=== PATIENT | male | born 1980 | race Caucasian/White ===

== ENCOUNTER 2016-08-22 11:57 | Emergency (ER) | payer MEDICAID, OTHER ==
[2016-08-22] MEDS ORDERED: DICYCLOMINE HCL 10 MG/ML AMPUL IM ONE ×2 (12:34→12:36)
[2016-08-22] MEDS ORDERED: KETOROLAC TROMETHAMINE 60 MG/2 ML VIAL IM ONE ×2 (12:44→12:46)
[2016-08-22 12:46] LABS: Hematocrit 41.9 % (42.0-52.0); Hemoglobin 14.9 gm/dL (13.5-18.0); Mean Cell Volume 86.6 fl (78-100); Mean Corpuscular Hemoglobin 30.8 pg (27-31); Mean Corpuscular Hgb Conc 35.6 g/dl (32-36); Mean Platelet Volume 8.2 fl (6.0-9.5); Neutrophil # 12.3 K/mm3 (1.3-6.0); Neutrophil % 78.1 % (42-75.0); Platelet Count 305 K/mm3 (150-450); Red Blood Count 4.84 M/mm3 (4.7-6.0); Red Cell Distribution Width 12.2 % (11.5-14.0); White Blood Count 15.8 K/mm3 (4.0-10.5)
--- NOTE | 2016-08-22 12:50 | ERNOTE ---
Abdominal HPI - Narrative Date of Service: 08/22/16 - General Chief Complaint: Abdominal Pain Time Seen by Provider: 08/22/16 12:39 Source: patient Exam Limitations: no limitations - Immun/Allergies/Home Medications Immunizatons: IMMUNIZATION HX Immunizations Up to Date No History of Influenza Vaccine No Hx Pneumococcal Vaccination No Allergies/Adverse Reactions: Allergies No Known Allergies Allergy (Verified 08/22/16 12:21) Home Medications: HOME MEDICATIONS Naproxen [Naprosyn] 500 mg PO BID PRN #60 tab 08/22/16 [Last Taken Unknown] Sulfamethoxazole/Trimethoprim [Bactrim Ds] 1 tab PO BID #28 tab 08/22/16 [Last Taken Unknown] - History of Present Illness Narrative: Pt. comes in with c/o LLQ pain that radiated from his back this morning and is just in his abdomen at this time. Pt. states that the pain worsens with movement and improves for a minute after urinating. Pt. does state that he has had blood in his urine but denies any SOB, CP, diarrhea or dysuria. Pt. denies any prehospital treatment. Review of Systems - Review of Systems Constitutional: Present: no symptoms reported. Absent: recent illness, fever, chills, weakness, fatigue, malaise EYE: Present: no symptoms reported ENT: Present: no symptoms reported Respiratory: Present: no symptoms reported. Absent: shortness of breath, cough , wheezing Cardiology: Present: no symptoms reported. Absent: chest pain, palpitations, edema Gastrointestinal/Abdominal: Present: nausea, vomiting, abdominal pain - LLQ. Absent: diarrhea Genitourinary: Present: frequency, pain - L flank, hematuria. Absent: dysuria Musculoskeletal: Present: back pain - L flank resolved now Skin: Present: no symptoms reported. Absent: rash, change in color Neurological: Present: no symptoms reported. Absent: headache, dizziness/light- headedness, numbness, tingling All Other Systems: All systems neg except as marked - Patient's Past Medical History Patient History - Medical: No pertinent hx Patient History - Cardiac/Respiratory: No pertinent hx Patient History - Cancer: No Hx of Cancer Patient History - Surgical Procedures: No surgical history Patient History - Other: None - Family History Father Family History - Medical: No pertinent hx Family History - Cardiac/Respiratory: No pertinent hx Mother Family History - Medical: No pertinent hx Family History - Cardiac/Respiratory: Hypertension - Social History Living Situations: significant other Abuse History: No History of abuse Psych History: No pertinent hx Smoking Status: Current every day smoker Have you smoked in the past 12 months: Yes Alcohol Use: none Drug Use: none, marijuana - Immunizations Immunizations Up to Date: No Hx Pneumococcal Vaccination: No History of Influenza Vaccine: No Physical Exam - Physical Exam General Appearance: Present: wd/wn, alert, mild distress Eye Exam: Normal inspection: bilateral, PERRL: bilateral, EOMI: bilateral Ears, Nose, Throat: Present: normal ENT inspection, normal pharynx Neck: Present: normal inspection, nontender. Absent: lymphadenopathy (R), lymphadenopathy (L) Respiratory: Present: no respiratory distress, normal breath sounds, no accessory muscle use, chest nontender, lungs clear Cardiovascular/Chest: Present: regular rate, rhythm, no murmur, normal peripheral pulses Gastrointestinal/Abdominal: Present: normal bowel sounds, nontender, nondistended, soft, no organomegaly, other - palpation did not change symptoms Back Exam: Present: normal range of motion, no vertebral tenderness, CVA tenderness (L) Extremity Exam: Present: normal inspection, non-tender, normal range of motion, no edema Neurological Exam: Present: alert, oriented, normal mood/affect, no motor/ sensory deficits, time 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 Absent: pallor, skin rash ED Progress - Date and Time Seen: Date and Time: 08/22/16 14:[address] Otero and we will have pt. strain urine start on abx and have him follow up with Dr Otero in clinic on sunday. - Results and Orders Patient's Lab Results:: I have reviewed the patient's lab results. - Vital Signs Patient's Vital Signs:: I have reviewed the patient's vital signs. Vital Signs: Vital Signs 08/22/16 12:17 Temperature 34.9 C L Pulse Rate 61 Respiratory 20 Rate O2 Sat by Pulse 100 Oximetry - CT/Ultrasound CT/Ultrasound Narrative: CT with 3mm obstructing stone with periureteral stranding and hydroureter and hydronephrosis Distal L ureter - Progress/Reassessment Chief Complaint: Abdominal Pain Progress:: Improved Departure - Departure Clinical Impression: Renal stone Disposition: Home self-care Condition: Good Instructions: Kidney Stones, [id number] Additional Instructions: Please follow up with urologist on sunday by calling office for appointment as soon as you get home. Strain all urine. Referrals: Ulisses Otero MD [Associate] - Prescriptions: Naproxen [Naprosyn] 500 mg PO BID PRN #60 tab PRN Reason: Pain Sulfamethoxazole/Trimethoprim [Bactrim Ds] 1 tab PO BID #28 tab
[2016-08-22 12:55] LABS: Albumin * 3.9 gm/dl (3.4-5.0); Anion Gap 13.1 mmol/L (6.8-13.8); BUN/Creatinine Ratio 13.8 (9.0-21.6); Bilirubin, Total 0.8 mg/dL (0.0-1.1); Ca. Corrected For Albumin 8.5 mg/dL (8.4-10.2); Calcium * 8.7 mg/dL (7.9-10.9); Carbon Dioxide 28.5 mmol/L (24-32.6); Potassium 3.6 mmol/L (3.4-4.6); Total Protein 7.5 gm/dL (6.2-8.2)
[2016-08-22 13:05] LABS: Urine Bilirubin 1 mg/dl (NEGATIVE); Urine Blood 250 /ul (NEGATIVE); Urine Ketone Negative (NEGATIVE); Urine Nitrite Negative (NEGATIVE); Urine Protein 30 mg/dL (NEGATIVE); Urine Specific Gravity 1.025 SP.GR. (1.005-1.030); Urine Urobilinogen Normal (NORMAL)
[2016-08-22 13:11] LABS: Urine Appearance Slightly Cloudy; Urine Color Yellow; Urine RBC 25-50 /hpf (0-5); Urine WBC TRACE /hpf (0-5)
[2016-08-22 13:12] LABS: Urine Bacteria 1+; Urine Mucus Few - 1+
[2016-08-22 15:34] VITALS: BP 119/71
== END 2016-08-22 15:10 | disposition home or self-care (01) ==
LOC: ER 11:57
DX: N20.0 Calculus of kidney (principal); Z72.0 Tobacco use